=== PATIENT | male | born 1980 | race Two or more races ===

== ENCOUNTER 2019-04-11 23:03 | Emergency (ER) | payer OTHER ==
[~2019-04-11] VITALS: Ht 175.3 cm; Wt 90.7 kg
--- NOTE | 2019-04-11 23:30 | NUR ---
BIBSELF WITH FRIEND. AAOX4. SPEAKS IN [place] BUT FRIEND AT BEDSIDE FOR TRANSLATION. NAD, BREATHING EVEN AND UNLABORED. AMBULATORY. C/O LEFT CHEST PAIN RADIATING TO BACK X 1 HOUR AGO. PT ALSO STATES THAT HE FEELS WEAK. ALSO C/O NAUSEA. NOTED PT L UPPER EXTREMETIES WITH LIMITED RANGE OF MOTION WITH PAIN UPON MOVEMENT. PT TO ER BED 2. PLACED ON MONITOR. AWAITING MD FOR EVAL.
--- NOTE | 2019-04-12 00:20 | NUR ---
IV LINE OBTAINED ON RFA 18G
--- NOTE | 2019-04-12 00:20 | NUR ---
XRAY AT BEDSIDE
--- NOTE | 2019-04-12 00:23 | NUR ---
LAB REDRAW, EXCELLENCE CONSULTANT AT BEDSIDE.
[2019-04-12 00:28] LABS: BASOPHILS # (AUTO) 0.1 /CMM (0.0-0.2); BASOPHILS % (AUTO) 0.6 % (0.0-2.0); EOSINOPHILS % (AUTO) 1.2 % (0.0-6.0); HEMATOCRIT 46 % (39-51); HEMOGLOBIN 16.4 g/dL (13.5-17.5); LYMPHOCYTES # (AUTO) 2.1 /CMM (0.8-4.8); LYMPHOCYTES % (AUTO) 24.6 % (20.0-44.0); MEAN CORPUSCULAR HGB CONC 36 g/dl (31.0-36.0); MEAN CORPUSCULAR VOLUME 86 fL (80-96); MONOCYTES # (AUTO) 0.5 /CMM (0.1-1.30); MONOCYTES % (AUTO) 5.8 % (2.0-12.0); NEUTROPHILS # (AUTO) 5.8 /CMM (1.8-8.9); NEUTROPHILS % (AUTO) 67.8 % (43.0-81.0); PLATELET COUNT (AUTO) 285 /CMM (150-450); RED BLOOD CELL COUNT(AUTO) 5.31 MIL/uL (4.5-6.0); WHITE BLOOD COUNT (AUTO) 8.6 K/uL (4.3-11.0)
[2019-04-12 00:33] LABS: CALCIUM, SERUM 9.4 mg/dL (8.5-10.1); CARBON DIOXIDE 24 mmol/L (21-32); CHLORIDE 99 mmol/L (98-107); CREATININE 0.9 mg/dL (0.6-1.3); GLUCOSE 179 mg/dL (74-106); POTASSIUM 3.7 mmol/L (3.5-5.1); SODIUM SERUM 137 mmol/L (136-145); UREA NITROGEN, BLOOD 16 mg/dL (7-18)
[2019-04-12 00:39] LABS: ALBUMIN 4.4 g/dL (3.4-5.0); ALKALINE PHOSPHATASE 81 U/L (46-116); BILIRUBIN,DIRECT 0.1 mg/dL (0.0-0.2); BILIRUBIN,TOTAL 0.5 mg/dL (0.2-1.0)
[2019-04-12] MEDS ORDERED: IV NS 0.9% 250 ML IV ONE (00:56)
[2019-04-12] MEDS ORDERED: CT SWABBABLE VALVE TRANS SET 1 EA INFUS.SET MC ONE (00:56)
[2019-04-12] MEDS ORDERED: IOHEXOL-350 100 ML VIAL IV ONE (00:56)
[2019-04-12] MEDS ORDERED: MORPHINE SULFATE INJ 2 MG/ML DISP.SYRIN IV ONE (01:00)
[2019-04-12] MEDS ORDERED: ONDANSETRON HCL/PF 4 MG/2 ML VIAL IV ONE (01:00)
[2019-04-12] MEDS ORDERED: MORPHINE SULFATE INJ 2 MG/ML DISP.SYRIN ONE (01:02)
[2019-04-12] MEDS ORDERED: ONDANSETRON HCL/PF 4 MG/2 ML VIAL ONE (01:02)
--- NOTE | 2019-04-12 01:03 | NUR ---
PT REFUESED PAIN MEDICATION AND ANTIEMETIC. PT STATES THAT HE DOES NOT WANT ANY MEDICATION.
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
--- NOTE | 2019-04-12 01:20 | NUR ---
BACK FROM CT
--- NOTE | 2019-04-12 01:27 | NUR ---
REOFFERED PAIN MEDICATION AND ANTIEMTIC AFTER GOING TO CT. PT STILL REFUSED. NO PAIN AT THIS TIME BUT FEELS THROBBING ON MUSCLE. AWARE.
[2019-04-12 01:30] LABS: ALANINE AMINOTRANSFERASE 43 U/L (12-78); ASPARTATE AMINOTRANSFERASE 20 U/L (15-37)
--- NOTE | 2019-04-12 02:00 | NUR ---
CALLED JAMIR TO READ IMAGE
--- NOTE | 2019-04-12 03:03 | NUR ---
REFUSED TO HAVE REPEAT TROPONIN BLOOD DRAW. PT INFORMED OF RISK AND BENEFIT BUT STILL REFUSING. MD EVEN ASKED HIM SELF BUT STILL REFUSING.
--- NOTE | 2019-04-12 03:17 | NUR ---
Patient does not wish to proceed with medical care recommended by Prasad Buitrago. Patient given information related to possible complications, up to and including , which could occur as a result of leaving the hospital at this time. Patient verbalizes understanding of risks involved due to leaving against medical advice. Patient has signed AMA form. Pt ambulatory with a steady gait IV removed. Catheter intact and site benign. Pressure and 4x4 applied to site. No bleeding noted.
[2019-04-12 03:24] VITALS: BP 126/68
== END 2019-04-12 03:26 | disposition left against medical advice (07) ==
LOC: ER 23:08
DX: R07.89 Other chest pain (principal); E11.9 Type 2 diabetes mellitus without complications; F32.9 Major depressive disorder, single episode, unspecified
CPT/HCPCS: 36415 ×2; 71045; 71275; 80048; 80076; 83880; 84484; 85025; 85610; 85730; 93005 ×2; 99284; J7050; Q9967; J2270; J2405

== ENCOUNTER → 2021-01-28 | Emergency (ER) | payer OTHER ==
[~2021-01-28] VITALS: Ht 175.3 cm; Wt 99.8 kg
[~2021-01-28] MED LIST: CYCL5TAB PO; IBUP-1957 PO; KETOROLAC TROMETHAMINE INJ 30 MG/ML VIAL IM ONE; ONDANSETRON HCL/PF - ER 4 MG/2 ML VIAL IM ONE
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
--- NOTE | 2021-01-28 13:35 | NUR ---
The patient alert and oriented x4. Patient discharged to home in stable condition. Written and verbal after care instructions given. Patient verbalizes understanding of instruction. the patient left ER in stable condition.
[2021-01-28 13:36] VITALS: BP 137/80
== END | disposition home or self-care (01) ==
LOC: ER 13:58
DX: M25.512 Pain in left shoulder (principal); M54.2 Cervicalgia; R11.0 Nausea; R55 Syncope and collapse; E11.9 Type 2 diabetes mellitus without complications; Z79.899 Other long term (current) drug therapy; V49.49XA Driver injured in collision with other motor vehicles in traffic accident, initial encounter; Y93.89 Activity, other specified; Y92.413 State road as the place of occurrence of the external cause; Y99.8 Other external cause status
CPT/HCPCS: 70450; 71045; 72125; 73030; 99285; J2405

== ENCOUNTER 2023-02-25 02:59 | Emergency (ER) | payer OTHER ==
[~2023-02-25] VITALS: Ht 172.7 cm; Wt 81.2 kg
[2023-02-25 02:59] VITALS: BP 125/77
[~2023-02-25 02:59] MED LIST changes: -KETOROLAC TROMETHAMINE INJ 30 MG/ML VIAL IM ONE; -ONDANSETRON HCL/PF - ER 4 MG/2 ML VIAL IM ONE
[2023-02-25] MEDS ORDERED: AMOX500T2 PO ×2 (03:11→03:25)
[2023-02-25] MEDS ORDERED: NABU-141 PO ×2 (03:11→03:25)
[2023-02-25] MEDS ORDERED: AMOXICILLIN TRIHYDRATE 250 MG CAPSULE ONE (03:17)
[2023-02-25] MEDS ORDERED: KETOROLAC TROMETHAMINE INJ 60 MG/2 ML VIAL IM ONE (03:17)
[2023-02-25] MEDS: AMOXICILLIN TRIHYDRATE 500 MG CAPSULE PO ONE (03:23)
[2023-02-25] MEDS: KETOROLAC TROMETHAMINE INJ 60 MG/2 ML VIAL IM ONE (03:23)
== END 2023-02-25 04:05 | disposition home or self-care (01) ==
LOC: ER 02:59
DX: H66.91 Otitis media, unspecified, right ear (principal)
CPT/HCPCS: 99283; 96372; J1885

== ENCOUNTER 2025-02-09 03:18 | Emergency (ER) | payer OTHER ==
[~2025-02-09] VITALS: Ht 177.8 cm; Wt 101.2 kg
[~2025-02-09 03:18] MED LIST changes: +AMOX500T2 PO; +NABU-141 PO
[2025-02-09 04:49] LABS: BASOPHILS # (AUTO) 0.1 K/uL (0.0-0.2); BASOPHILS % (AUTO) 0.5 % (0.0-2.0); EOSINOPHILS # (AUTO) 0.1 K/uL (0.0-0.7); EOSINOPHILS % (AUTO) 0.6 % (0.0-6.0); HEMATOCRIT 53 % (39-51); HEMOGLOBIN 18.6 g/dL (13.5-17.5); LYMPHOCYTES # (AUTO) 2.9 K/uL (0.8-4.8); LYMPHOCYTES % (AUTO) 25.5 % (20.0-44.0); MEAN CORPUSCULAR HEMOGLOBIN 30 PG (26.0-33.0); MEAN CORPUSCULAR HGB CONC 35 g/dl (31.0-36.0); MEAN CORPUSCULAR VOLUME 87 fL (80-96); MONOCYTES # (AUTO) 0.5 K/uL (0.1-1.30); MONOCYTES % (AUTO) 4.5 % (2.0-12.0); NEUTROPHILS # (AUTO) 7.7 K/uL (1.8-8.9); NEUTROPHILS % (AUTO) 68.9 % (43.0-81.0); PLATELET COUNT (AUTO) 286 K/uL (150-450); RED BLOOD CELL COUNT(AUTO) 6.13 MIL/uL (4.5-6.0); RED CELL DISTRIBUTION WIDTH 13.4 % (11.5-15.0); WHITE BLOOD COUNT (AUTO) 11.3 K/uL (4.3-11.0)
[2025-02-09 05:13] LABS: CALCIUM, SERUM 9.7 mg/dL (8.5-10.1); CARBON DIOXIDE 26 mmol/L (21-32); CHLORIDE 100 mmol/L (98-107); CREATININE 0.9 mg/dL (0.6-1.3); GLUCOSE 138 mg/dL (74-106); POTASSIUM 3.8 mmol/L (3.5-5.1); SODIUM SERUM 139 mmol/L (136-145); UREA NITROGEN, BLOOD 12 mg/dL (7-18)
[2025-02-09 05:26] LABS: INR 1.03 (0.91-1.10); PARTIAL THROMBOPLASTIN TIME 25.9 SEC (24.3-34.3); PROTHROMBIN TIME 10.9 SECS (9.2-11.1)
[2025-02-09 06:08] LABS: AMPHETAMINE, URINE NEGATIVE (NEGATIVE); BARBITURATE, URINE NEGATIVE (NEGATIVE); BENZODIAZEPINE, URINE NEGATIVE (NEGATIVE); CANNABINOID, URINE NEGATIVE (NEGATIVE); COCCAINE, URINE NEGATIVE (NEGATIVE); OPIATE, URINE NEGATIVE (NEGATIVE); PHENCYCLIDINE SCREEN,URINE NEGATIVE (NEGATIVE)
[2025-02-09 06:31] LABS: APPEARANCE,URINE CLEAR (CLEAR); BILIRUBIN,URINE NEGATIVE (NEGATIVE); BLOOD, URINE NEGATIVE Ery/uL (NEGATIVE); COLOR,URINE YELLOW (YELLOW); KETONES,URINE NEGATIVE (NEGATIVE); LEUKOCYTE ESTERASE ,URINE NEGATIVE (NEGATIVE); NITRITE, URINE NEGATIVE (NEGATIVE); PROTEIN,URINE NEGATIVE (NEGATIVE); UGLUCOSE NEGATIVE (NEGATIVE); UROBILINOGEN,URINE 0.2 EU/dL (0.2)
[2025-02-09 06:58] VITALS: BP 144/110; O2SAT 97
[2025-02-09 07:01] LABS: ANISOCYTOSIS 1+; BAND % (MANUAL) 1 % (0.0-5.0); EOSINOPHILS % (MANUAL) 2 % (0-4); LYMPHOCYTES % (MANUAL) 24 % (16-48); MONOCYTES % (MANUAL) 5 % (0-11.0); NEUTROPHILS % (MANUAL) 68 (42-76); PLATELET ESTIMATE ADEQUATE
== END 2025-02-09 06:59 | disposition home or self-care (01) ==
LOC: ER 03:20
DX: F41.0 Panic disorder [episodic paroxysmal anxiety] (principal); R53.1 Weakness; R07.9 Chest pain, unspecified; F41.9 Anxiety disorder, unspecified; E11.9 Type 2 diabetes mellitus without complications; E78.5 Hyperlipidemia, unspecified; Z79.1 Long term (current) use of non-steroidal anti-inflammatories (NSAID)
CPT/HCPCS: 36415; 70450-TC; 71045-TC; 80048-TC; 84484-TC; 85025-TC; 85730-TC